=== PATIENT | male | born 1975 | race Caucasian/White ===

== ENCOUNTER 2017-10-08 15:15 | Emergency (ER) | payer OTHER ==
--- NOTE | 2017-10-08 15:19 | EDPHY ---
H & P Time Seen by Provider: 10/08/17 15:19 HPI/ROS: CHIEF COMPLAINT: Right shoulder injury HISTORY OF PRESENT ILLNESS: Works as a [employer], fell on outstretched right arm dislocating right shoulder. Presents by EMS having received 100 mcg of fentanyl. Only pain is in the right shoulder. Worse with movement or palpation. Does not radiate. Not associated with weakness or numbness in the hand. REVIEW OF SYSTEMS: Eye: No symptoms ENT: No symptoms Cardiac: No chest pain, no syncope Pulmonary: Not short of breath Abdomen: No abdominal pain Musculoskeletal: HPI Skin: No laceration Neuro: No weakness or numbness in extremities Constitutional: no fever : No symptoms A comprehensive 10 point review of systems is otherwise negative aside from elements mentioned in the history of present illness. PAST MEDICAL HISTORY: Previous arthroscopic right shoulder surgery Social history: [employer] General Appearance: Alert and conversant, cooperative. Eyes: No scleral icterus. ENT, Mouth: Normal mucous membranes. Respiratory: Normal respiratory effort, breath sounds equal, lungs are clear to auscultation. Cardiovascular: Regular rate and rhythm. Normal right radial pulse. Gastrointestinal: Abdomen is soft and non tender. Neurological: Alert and oriented x3. Normally conversant. Normal motor and sensory in the right hand. Skin: No laceration Musculoskeletal: Right AC step-off. Normal range of motion of the right elbow and wrist. Nontender in the right humerus, elbow, forearm, wrist and hand including snuffbox. Psychiatric: Not agitated. Emergency Department course/MDM: X-ray of the right shoulder shows anterior dislocation without fracture. Procedure: Dislocation reduction. Indication: Dislocation of the right glenohumeral joint. Risks, benefits, alternatives discussed with the patient including but not limited to fracture, nerve or blood vessel injury, and consent obtained. A timeout was completed. The shoulder was reduced in the usual fashion scapular manipulation without complications. Post reduction the patient's neurovascular exam is normal. Post reduction x-ray demonstrates reduction of the joint to the anatomic position. The procedure was performed by myself. 1600 post reduction x-ray shows good position without additional fracture Constitutional: Initial Vital Signs Temperature (C) 36.7 C 10/08/17 15:10 Heart Rate 95 10/08/17 15:10 Respiratory Rate 10 L 10/08/17 15:10 Blood Pressure 169/104 H 10/08/17 15:10 O2 Sat (%) 93 10/08/17 15:10 O2 Delivery Mode Room Air Allergies/Adverse Reactions: Penicillins Allergy (Verified 10/08/17 15:40) Home Medications: Medication Instructions Recorded Heide 10/08/17 Medical Decision Making - Diagnostics Imaging Results: Imaging Impressions Shoulder X-Ray 10/08/17 15:20 Impression: Anterior/inferior dislocation of the humeral head relative to the glenoid fossa. - Data Points Medications Given: Discontinued Medications Ondansetron HCl (Zofran) 4 mg IVP EDNOW ONE Stop: 10/08/17 15:36 Last Admin: 10/08/17 15:45 Dose: 4 mg Departure - Departure Disposition: Home, Routine, Self-Care Clinical Impression: Anterior dislocation of right shoulder Condition: Good Instructions: Shoulder Dislocation (ED) Additional Instructions: Sling, limited use right upper extremity, work comp follow-up next available, on Tuesday for orthopedic evaluation Referrals: Claire Clarke MD [Medical Doctor] - As per Instructions
[2017-10-08 15:40] VITALS: TEMP 98.1; O2SAT 93
[2017-10-08] MEDS: ONDANSETRON 4 MG/2 ML VIAL IVP ONE (15:45)
[2017-10-08 16:17] VITALS: BP 132/89; PULSE 76; RESP 16
== END 2017-10-08 16:17 | disposition home or self-care (01) ==
PROC: 0RSJXZZ Reposition Right Shoulder Joint, External Approach (ICD-10-PCS; principal; 2017-10-08)
DX: S43.014A Anterior dislocation of right humerus, initial encounter (principal); W18.30XA Fall on same level, unspecified, initial encounter; Y99.0 Civilian activity done for income or pay
CPT/HCPCS: 96374; A4565; J2405